=== PATIENT | male | born 1955 | race Caucasian/White ===

== ENCOUNTER 2018-03-11 13:11 | Emergency (ER) | payer MEDICARE ==
[~2018-03-11] VITALS: Ht 182.9 cm; Wt 72.6 kg
[2018-03-11 13:24] VITALS: BP 107/81
[2018-03-11] MEDS ORDERED: cefTRIAXone SOD 1,000 MG VL IM ONE (14:45)
[2018-03-11] MEDS ORDERED: LIDOCAINE 1% HCL (LOCAL ANESTH.) INJ 20ML MDV IJ ONE (14:45)
[2018-03-11] MEDS ORDERED: LIDOCAINE 1% (LOCAL ANESTH.) PF 5ml SDV ONE (14:46)
== END 2018-03-11 15:20 | disposition home or self-care (01) ==
LOC: ER 13:11
DX: J02.9 Acute pharyngitis, unspecified (principal); Z90.49 Acquired absence of other specified parts of digestive tract
CPT/HCPCS: 96372; 99283; J0696

== ENCOUNTER 2018-05-07 12:38 | Emergency (ER) | payer MEDICARE ==
[~2018-05-07] VITALS: Ht 182.9 cm; Wt 59.0 kg
[2018-05-07] MEDS ORDERED: ONDANSETRON HCL 4 MG/2 ML VIAL IV ONE (15:00)
[2018-05-07] MEDS ORDERED: MORPHINE SULFATE 4 MG/ML SYR/VIAL IV ONE (15:00)
[2018-05-07 15:06] LABS: Basophils # (auto) 0.1 uL; Basophils % (auto) 0.6 % (0.0-2.0); Eosinophils # (auto) 0.4 uL; Eosinophils % (auto) 3.4 % (0.0-7.0); Hematocrit 42.4 % (41.0-53.0); Hemoglobin 14.3 g/dL (13.5-17.5); Lymphocytes # (auto) 2.3 uL; Lymphocytes % (auto) 18.8 % (10.0-50.0); Mean Corpuscular Hemoglobin 30.5 pg (28.0-32.0); Mean Corpuscular Hgb Conc. 33.8 g/dL (32.0-36.0); Monocytes # (auto) 0.9 uL; Monocytes % (auto) 6.9 % (0.0-12.0); Neutrophils # (auto) 8.8 uL; Neutrophils % (auto) 70.3 % (37.0-80.0); Platelet Count (auto) 432 10^3/uL (140-450); Red Blood Cells 4.71 10^6/uL (4.5-5.90); Red Cell Distribution Width 13.6 % (11.8-14.3); White Blood Cell 12.5 10^3/uL (4.4-10.8)
[2018-05-07] MEDS ORDERED: PIPERACILLIN-TAZOB 3.375GM 100 ML IV ONE (15:15)
[2018-05-07 15:21] LABS: Albumin 3.2 g/dL (3.4-5.0); Potassium 3.3 mmol/L (3.5-5.1)
[2018-05-07 15:24] LABS: BUN/Creatinine Ratio 17.6; Bilirubin, Total 1.4 mg/dL (0.2-1.0); Total Protein 8.1 g/dL (6.4-8.2)
[2018-05-07] MEDS ORDERED: POTASSIUM EFFERVESENT TAB 25 MEQ PO ONE (15:45)
[2018-05-07 16:34] VITALS: BP 120/68
== END 2018-05-07 17:09 | disposition home or self-care (01) ==
LOC: ER 12:38
DX: K94.23 Gastrostomy malfunction (principal); Z85.01 Personal history of malignant neoplasm of esophagus; Z92.21 Personal history of antineoplastic chemotherapy
CPT/HCPCS: 36415; 71045; 73110; 74176; 80053; 85025; 96365; 96375; 99285; J2270; J2405; J2543

== ENCOUNTER 2018-08-02 22:25 | Emergency (ER) | payer MEDICARE ==
[~2018-08-02] VITALS: Ht 182.9 cm; Wt 49.4 kg
[2018-08-02 22:33] VITALS: BP 88/66
[2018-08-02 23:07] LABS: Basophils # (auto) 0 uL; Basophils % (auto) 0.5 % (0.0-2.0); Eosinophils # (auto) 0.1 uL; Eosinophils % (auto) 1.1 % (0.0-7.0); Hematocrit 40.3 % (41.0-53.0); Hemoglobin 14.1 g/dL (13.5-17.5); Lymphocytes # (auto) 1.3 uL; Lymphocytes % (auto) 14.4 % (10.0-50.0); Mean Corpuscular Hemoglobin 30.2 pg (28.0-32.0); Mean Corpuscular Hgb Conc. 34.9 g/dL (32.0-36.0); Mean Corpuscular Volume 86.7 fL (80.0-100.0); Monocytes # (auto) 0.5 uL; Nucleated Red Blood Cells % 0.1 %; Platelet Count (auto) 302 10^3/uL (140-450); Red Blood Cells 4.65 10^6/uL (4.5-5.90); Red Cell Distribution Width 15.2 % (11.8-14.3)
[2018-08-02 23:18] LABS: Urine Bacteria NONE SEEN /hpf (None Seen); Urine Blood Negative /uL (Negative); Urine Mucus FEW (None Seen); Urine Specific Gravity 1.025 (1.001-1.035); Urine WBC 1 /hpf (0 - 3)
[2018-08-02 23:25] LABS: Albumin 3.5 g/dL (3.4-5.0); Calcium 8.8 mg/dL (8.5-10.1)
[2018-08-02 23:28] LABS: BUN/Creatinine Ratio 15.9
[2018-08-02 23:31] LABS: Bilirubin, Total 0.5 mg/dL (0.2-1.0); Total Protein 8.9 g/dL (6.4-8.2)
== END 2018-08-03 02:59 | disposition left against medical advice (07) ==
LOC: ER 22:28
DX: Z93.1 Gastrostomy status (principal); Z48.00 Encounter for change or removal of nonsurgical wound dressing; Z53.21 Procedure and treatment not carried out due to patient leaving prior to being seen by health care provider
CPT/HCPCS: 36415; 80053; 81001; 83605; 85025

== ENCOUNTER 2018-08-03 12:34 | Inpatient (IN) | payer MEDICARE, MEDICAID ==
[~2018-08-03] VITALS: Ht 182.9 cm; Wt 47.2 kg
[2018-08-03] MEDS ORDERED: ONDANSETRON HCL 4 MG/2 ML VIAL IV ONE (22:45)
[2018-08-03] MEDS ORDERED: SODIUM CHLORIDE 0.9% 1,000 ML IV ONE (22:45)
[2018-08-03] MEDS ORDERED: MORPHINE SULFATE 4 MG/ML SYR/VIAL IV ONE (22:45)
[2018-08-03 23:13] LABS: Basophils # (auto) 0 uL; Basophils % (auto) 0.3 % (0.0-2.0); Eosinophils # (auto) 0 uL; Eosinophils % (auto) 0.3 % (0.0-7.0); Hematocrit 38.4 % (41.0-53.0); Hemoglobin 13.1 g/dL (13.5-17.5); Lymphocytes # (auto) 0.6 uL; Lymphocytes % (auto) 8.6 % (10.0-50.0); Mean Corpuscular Hemoglobin 29.8 pg (28.0-32.0); Mean Corpuscular Hgb Conc. 34.1 g/dL (32.0-36.0); Mean Corpuscular Volume 87.3 fL (80.0-100.0); Monocytes # (auto) 0.3 uL; Neutrophils % (auto) 86.8 % (37.0-80.0); Platelet Count (auto) 242 10^3/uL (140-450); Red Blood Cells 4.39 10^6/uL (4.5-5.90); Red Cell Distribution Width 15.2 % (11.8-14.3); White Blood Cell 6.9 10^3/uL (4.4-10.8)
[2018-08-03 23:27] LABS: INR 1.11 (0.9-1.15); Partial Thromboplastin Time 27.9 sec (23.78-33.04); Prothrombin Time 11.8 sec (9.27-12.13)
[2018-08-03 23:30] LABS: Albumin 3.3 g/dL (3.4-5.0); BUN/Creatinine Ratio 20.3; Calcium 8.9 mg/dL (8.5-10.1); Potassium 3.6 mmol/L (3.5-5.1)
[2018-08-03 23:33] LABS: Bilirubin, Total 0.8 mg/dL (0.2-1.0); Total Protein 8.4 g/dL (6.4-8.2)
[2018-08-04] MEDS ORDERED: VANCOMYCIN 1GM/250ML 250 ML IV ONE (01:45)
[2018-08-04] MEDS ORDERED: PIPERACILLIN-TAZOB 3.375GM 100 ML IV ONE (01:45)
[2018-08-04] MEDS ORDERED: TPN PER PHARMACY 0 ML IV SCH (05:00)
[2018-08-04] MEDS ORDERED: ALBUMIN 5% 250 ML IV ONE (07:15)
[2018-08-04] MEDS: PANTOPRAZOLE 40 MG/10 ML VIAL IV SCH (07:22)
[2018-08-04 08:18] LABS: Albumin 2.7 g/dL (3.4-5.0); Calcium 8.1 mg/dL (8.5-10.1); Magnesium 1.9 mg/dL (1.6-2.6); Potassium 3.4 mmol/L (3.5-5.1)
[2018-08-04 08:23] LABS: BUN/Creatinine Ratio 30.3; Bilirubin, Total 0.5 mg/dL (0.2-1.0); Pre Albumin 10.6 mg/dL (20.0-40.0)
[2018-08-04] MEDS: MORPHINE SULFATE 4 MG/ML SYR/VIAL IV PRN ×2 (09:55→13:29)
[2018-08-04] MEDS: ONDANSETRON HCL 4 MG/2 ML VIAL IV PRN ×2 (09:56→13:29)
--- NOTE | 2018-08-04 12:29 | NUR ---
NUTRITION CONSULT/ASSESSMENT NOTES Please refer to link notes of nutrition screen form filed under the intervention section of the plan of care for further details. Est. Needs based on IBW (81 kg): 2050 kcal to 2450 kcal (25-30 kcal/kgIBW), 81 gms to 105 gms pro (1.0-1.3 gms/kgIBW d/t mod hypoalbuminemia). Will continue to monitor pertinent labs and reassess nutrient needs prn Thank you for this consult. Addendum: 08/04/18 at [address] Amended: Links added.
[2018-08-04] MEDS ORDERED: SODIUM CHL 0.9% IV ONE (13:00)
[2018-08-04] MEDS ORDERED: POTASSIUM CHLORIDE IV ONE (13:00)
--- NOTE | 2018-08-04 19:15 | NUR ---
Opening Shift Note Received report from SINDY Cruz. Assumed care of patient, awake and alert. No S/S of distress/SOB or pain. Ins ructed on POC and to call for assist PRN, will continue to monitor for changes Q1hr and PRN. Bed placed in lowest position, bed alarm turned on and call light within reach.
[2018-08-04] MEDS ORDERED: Jevity 1.2 Cal/Fiber 1 Liter GT SCH (19:45)
[2018-08-04 20:00] VITALS: BP 95/66
[2018-08-04] MEDS ORDERED: PPN PER PHARMACY IV NR ×9 (20:00)
--- NOTE | 2018-08-04 21:00 | NUR ---
PATIENT STARTED ON JEVITY 1.2 AT 30ML PER HOUR
[2018-08-04 22:00] VITALS: BP 95/66
[2018-08-05] MEDS ORDERED: InsuLIN REG 1unit/0.01ml Soln (100units/ml) SC SCH
[2018-08-05] MEDS ORDERED: DEXTROSE (50%) 50ML SYRG IV SCH
[2018-08-05] MEDS ORDERED: ACCU-CHEK COMFORT CURVE STRIP VI SCH
[2018-08-05 05:00] VITALS: BP 76/50
--- NOTE | 2018-08-05 05:12 | NUR ---
PATIENT IS RESTING IN BED, NO DISTRESS NOTED AND PATIENT DENIES PAIN. SMALL AMOUNT OF YELLOW GREENISH DRAINAGE NOTED TO J-TUBE INSERTION SITE.
[2018-08-05 05:24] LABS: Basophils # (auto) 0 uL; Basophils % (auto) 0.2 % (0.0-2.0); Eosinophils # (auto) 0.1 uL; Eosinophils % (auto) 0.7 % (0.0-7.0); Hematocrit 32.6 % (41.0-53.0); Lymphocytes # (auto) 0.4 uL; Lymphocytes % (auto) 4.9 % (10.0-50.0); Mean Corpuscular Hemoglobin 29.7 pg (28.0-32.0); Mean Corpuscular Hgb Conc. 33.7 g/dL (32.0-36.0); Monocytes # (auto) 0.3 uL; Monocytes % (auto) 3.9 % (0.0-12.0); Neutrophils # (auto) 7.3 uL; Neutrophils % (auto) 90.3 % (37.0-80.0); Platelet Count (auto) 232 10^3/uL (140-450); Red Blood Cells 3.71 10^6/uL (4.5-5.90); Red Cell Distribution Width 14.8 % (11.8-14.3)
[2018-08-05 05:41] LABS: Albumin 2.9 g/dL (3.4-5.0); Calcium 8.3 mg/dL (8.5-10.1); Magnesium 1.9 mg/dL (1.6-2.6)
[2018-08-05 05:45] LABS: BUN/Creatinine Ratio 31.1; Bilirubin, Total 0.5 mg/dL (0.2-1.0); Phosphorus 1.8 mg/dL (2.5-4.90); Total Protein 6.9 g/dL (6.4-8.2)
[2018-08-05] MEDS: PANTOPRAZOLE 40 MG/10 ML VIAL IV SCH (07:01)
--- NOTE | 2018-08-05 08:00 | NUR ---
OPENING SHIFT NOTE: Report received from NOC RNValeria. Assumed care of patient. Patient resting quietly in bed, no symptoms of pain. Bed in lowest position, rails x2 up and call light within reach. Updated on plan of care. Will continue to monitor.
[2018-08-05 09:00] VITALS: BP 89/61
--- NOTE | 2018-08-05 10:53 | NUR ---
FAMILY: Family at bedside. Family noted concern about drainage from Jtube site. RN noted moderate amount of bile like drainage coming from stoma around Jtube. No tube feeding noted. Site cleanse and skin protectant applied to peristomal skin due to erosion and cover with foam dressing. Paged place to Dr Rossi to notify of findings.
[2018-08-05] MEDS: MORPHINE SULFATE 4 MG/ML SYR/VIAL IV PRN (11:25)
--- NOTE | 2018-08-05 11:40 | NUR ---
MD: T/C from Dr Rossi, informed MD about leaking around j tube. RN to notify Dr Rojas.
--- NOTE | 2018-08-05 11:55 | NUR ---
MD: T/C from Dr Rojas. aware of leaking from j tube site. States cannot do anything at this time and recommends a Gastrografin study through the tube. Patient may need to follow up with surgeon who place tube initially.
[2018-08-05] MEDS ORDERED: GASTROGRAFIN 30 ML SOL ONE (12:12)
--- NOTE | 2018-08-05 12:54 | NUR ---
MD: Dr Rossi at bedside. Updated MD on j tube site and Dr Rojas's orders.
[2018-08-05 13:00] VITALS: BP 93/62
--- NOTE | 2018-08-05 15:03 | NUR ---
FAMILY: Spoke with patient's daughter. Patient's daughter in contact with [facility] where patient initially had feeding tube placed. Daughter spoke to GAURAV Witt from the [facility] where she was told that the patient should have the feeding tube immediately replaced here or sign out AMA and brought to [facility]. Daughter said our physicians can call and speak with this PA at [phone] if they have any questions or concerns. Per PA patient needs a 14g red rubber catheter sutured and place with a dye study. This RN informed Dr Rossi of the conversation with daughter. Dr Rossi is advising against leaving AMA and instructed RN to contact Dr Rojas. Dr Rojas paged. Updated family on RN reaching out to Dr Rojas regarding PA's recommendations. Patient's daughter also asking RN to not restart tube feeding at this time.
--- NOTE | 2018-08-05 16:30 | NUR ---
MD: Dr Rojas paged again. Still no return phone call. Family aware. Daughter asked to restart tube feeds at 30ml/hr and to flush with water prior to. Flush with 120ml of free water and restarted tube feeding at 30ml/hr.
[2018-08-05 17:00] VITALS: BP 91/61
--- NOTE | 2018-08-05 17:37 | NUR ---
FEEDING TUBE: Called to room by patient. Dressing around jtube site saturated with green bile like drainage. Drainage more increased since feedings were restarted. Also noted jtube is fully retracted into abdomen. Tube feeds held due to increased bile drainage from around site.
[2018-08-05] MEDS: FREE WATER GT SCH (18:00)
--- NOTE | 2018-08-05 19:20 | NUR ---
Opening Shift Note Assumed care of patient, awake and alert. No S/S of distress/SOB or pain. Instructed on POC and to call for assist PRN, will continue to monitor for changes Q1hr and PRN. Bed placed in lowest position, bed alarm turned on and call light within reach. Patient is semi-fowlers position.
--- NOTE | 2018-08-05 19:26 | NUR ---
CLOSING SHIFT NOTE: Report given to NOC Valeria CALLAHAN. Tube feeds remain off. Dressing to jtube site changed x4 times throughout day shift. Endorsed care.
[2018-08-05 22:00] VITALS: BP 84/56
[2018-08-06] MEDS: FREE WATER GT SCH ×2 (00:14→06:32)
[2018-08-06] MEDS: MORPHINE SULFATE 4 MG/ML SYR/VIAL IV PRN ×2 (00:30→10:59)
[2018-08-06 05:00] VITALS: BP 92/58
[2018-08-06] MEDS: PANTOPRAZOLE 40 MG/10 ML VIAL IV SCH (06:31)
--- NOTE | 2018-08-06 07:00 | NUR ---
CLOSING SHIFT NOTE: Report given to anju De Santiago RN. Continue tube as ordered. Dressing to j-tube site reinforced with tape.
[2018-08-06 09:00] VITALS: BP 81/50
--- NOTE | 2018-08-06 10:47 | NUR ---
paged Dasha Sierra at bedside asking to have patient discharge to take him to [facility]. Education provided on policies and plan of care. Dr Flo kim.
--- NOTE | 2018-08-06 10:54 | NUR ---
DR EULOGIO DENNISON at nursing station made aware of patient and family concerns.
[2018-08-06 10:58] VITALS: BP 93/63
--- NOTE | 2018-08-06 11:15 | NUR ---
DR KRISHNAN ROUNDING WITH DAUGHTER AT BEDSIDE DISCUSSED PLAN OF CARE. PATIENT CLEARED FOR DISCHARGE.
[2018-08-06 13:00] VITALS: BP 93/63
--- NOTE | 2018-08-06 14:49 | NUR ---
Dressing to J tube changed and education provided. Flushed Tube with free water as ordered. Supplies given to patient for home care. Discharge instructions given as ordered. Encourage to follow up with PMD as instructed. All questions and concerns addressed. Patient verbalized understanding. Medication reconciliation form completed and copy given to patient. IV removed with catheter intact, pressure dressing applied. Patient taken to vehicle via wheelchair with all personal belongings, accompanied by staff and family member. No distress noted at time of departure.
== END 2018-08-06 14:30 | disposition home or self-care (01) | DRG 393 ==
LOC: ER 12:48 → OVERFLOW 08-04 05:31 → WEST WING 08-04 15:10
PROVIDERS: ADMIT Nurse Practitioner; ATTEND Internal Medicine Pulmonary Disease
DX: K94.13 Enterostomy malfunction (principal); E43 Unspecified severe protein-calorie malnutrition; K56.600 Partial intestinal obstruction, unspecified as to cause; E87.1 Hypo-osmolality and hyponatremia; C15.9 Malignant neoplasm of esophagus, unspecified; Z68.1 Body mass index [BMI] 19.9 or less, adult; K57.30 Diverticulosis of large intestine without perforation or abscess without bleeding; M47.816 Spondylosis without myelopathy or radiculopathy, lumbar region; I10 Essential (primary) hypertension; E11.9 Type 2 diabetes mellitus without complications; E86.0 Dehydration; F03.90 Unspecified dementia, unspecified severity, without behavioral disturbance, psychotic disturbance, mood disturbance, and anxiety; Y83.8 Other surgical procedures as the cause of abnormal reaction of the patient, or of later complication, without mention of misadventure at the time of the procedure; N28.89 Other specified disorders of kidney and ureter; Z83.3 Family history of diabetes mellitus; Z90.49 Acquired absence of other specified parts of digestive tract
CPT/HCPCS: 36415; 74021; 74176; 80053; 80320; 81001; 82040; 82962; 83605; 83690; 83735; 84100; 84478; 85025; 85610; 85730; 96361; 96365; 96375; 96376; C9113; G0378; J2405; J3480